=== PATIENT | male | born 1950 | race Caucasian/White ===

== ENCOUNTER → 2019-04-17 07:58 | Outpatient (CLI) | payer MEDICARE, OTHER | END | disposition home or self-care (01) | LOC: D.US 07:58 | PROVIDERS: ATTEND Family Medicine | DX: R42 Dizziness and giddiness (principal) ==

== ENCOUNTER 2019-07-07 05:53 | Day surgery (SDC) | payer MEDICARE, OTHER ==
[~2019-07-07] VITALS: Ht 190.5 cm; Wt 93.0 kg
[~2019-07-07 05:53] MED LIST: FIBERCON625 MG PO; HCTZ PO; LOSARTAN PO
[2019-07-07 06:35] LABS: ANION GAP 10.4 mmol/L (8-16); CARBON DIOXIDE 30.4 mmol/L (21.0-32.0); CREATININE - SERUM 1.3 mg/dL (0.6-1.3); POTASSIUM - SERUM 3.8 mmol/L (3.5-5.1)
[2019-07-07 06:39] LABS: HEMATOCRIT 47.4 % (42.0-54.0); HEMOGLOBIN 16.1 g/dL (13.5-17.5); MCH 28.1 pg (26.0-34.0); MCV 82.7 fL (80.0-100.0); MEAN PLATELET VOLUME 11.4 fL (7.4-10.4); RBC 5.73 10x6/uL (4.20-6.10); RDW 14.1 % (11.5-14.5); WBC 4.5 10x3/uL (4.8-10.8)
[2019-07-07 07:31] VITALS: BP 129/72; Ht 190.5 cm; Wt 93.0 kg
--- NOTE | 2019-07-07 10:58 | OP ---
PATIENT NAME: DORA MILTON MEDICAL RECORD: [id number] :46 LOCATION:[facility] ADMISSION DATE: SURGEON: CLEMENT NEWSOME MD DATE OF OPERATION: 07/07/2019 SURGEON: Clement Newsome MD ANESTHESIA: TIVA by Kimberley Zavala CRNA. DIAGNOSES: Dysuria, possible interstitial cystitis. PROCEDURES: Cystoscopy, hydrodistention of the bladder and intravesical Rimso instillation. FINDINGS: No urethral lesions. Obstructive lateral lobes of the prostate. Single ureteral orifices bilaterally, inflamed bladder dome. No bladder tumors were seen. BLOOD LOSS: None. CLINICAL HISTORY: This is a 69-year-old male, who has persistent urinary tract infection symptoms. He has ongoing dysuria. He has been treated with doxycycline. This started about a month ago when he "saw a tick" on the undersurface of the penis. He went to a walk-in clinic and he was told that the zeyad was not a tick. Even after finishing the doxycycline, his symptoms have not resolved. He comes today to have cystoscopy to check for any lesions in the urethra, prostate, or bladder. HE IS ALLERGIC TO BACTRIM, DURICEF, FLOXIN, GUAIFENESIN, TRICOR, Z-GARETT, PHENYLEPHRINE, AND ASPIRIN. 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 DESCRIPTION OF PROCEDURE: The patient was given IV sedation. He was then placed in the lithotomy position and prepped and draped. A 17-Albanian cystoscope with 30-degree lens was used for visualization. Findings are as outlined above. The bladder was then filled to about 600 mL of capacity and the hydrodistention was maintained for about 2 minutes. The bladder was then emptied fully through the cystoscope sheath and the scope was removed. I then inserted a 16-Albanian red rubber catheter into the bladder and 50 mL of Rimso solution was instilled into the bladder. The catheter was then removed. The patient will hold the Rimso solution in for at least 15 minutes and then void it out. I will see the patient in followup in 2 weeks' time to check on his voiding symptoms. TRANSINT:[id number] Voice Confirmation ID: [id number] DOCUMENT ID: [id number] CLEMENT NEWSOME MD at 1058 CC: [id number] DICTATION DATE: 07/07/19 0934 PONY WORKER: 07/07/19 1053 REG [facility] [address] [place] [address]
--- NOTE | 2019-07-07 13:04 | NUR ---
1050 DRESSED, AWAKE & ALERT. GIVEN DISCHARGE INFORMATION INCLUDING: MED REC, RTC APPT., MC D/C INSTRUCTIONS, & CYSTOSCOPY D/C INSTRUCTIONS. PT & MRS. MILTON VOICED UNDERSTANDING. TO PRIVATE CAR PER WHEELCHAIR BY VOLUNTEER. HOME WITH MRS. MILTON. Cuco MELENDREZ R.N.
== END 2019-07-07 10:50 | disposition home or self-care (01) ==
LOC: D.OPS 05:53 → D.PAN 08:30 → D.OPS 08:30 → D.PAN 10:05 → D.OPS 10:15
PROVIDERS: Anesthesiology; ATTEND Urology
DX: R30.0 Dysuria (principal); N40.1 Benign prostatic hyperplasia with lower urinary tract symptoms; N13.8 Other obstructive and reflux uropathy; Z88.6 Allergy status to analgesic agent; Z88.1 Allergy status to other antibiotic agents; Z88.2 Allergy status to sulfonamides; Z01.812 Encounter for preprocedural laboratory examination

== ENCOUNTER 2019-10-12 12:45 | Emergency (ER) | payer MEDICARE, OTHER ==
[~2019-10-12] VITALS: Ht 190.5 cm; Wt 95.5 kg
[2019-10-12 13:13] VITALS: Ht 190.5 cm; Wt 95.5 kg
[2019-10-12] MEDS ORDERED: COZAAR25 MG PO (13:16)
[2019-10-12] MEDS ORDERED: HYDROCHLOROTH12.5 M1 PO (13:16)
[2019-10-12 14:09] LABS: BASOPHILS 0.2 % (0-2); EOSINOPHILS 0.3 % (0-7); HEMOGLOBIN 15.3 g/dL (13.5-17.5); IMMATURE GRANULOCYTES 0.2 % (0-5); LYMPHOCYTES 15.3 % (15-50); MCH 28.3 pg (26.0-34.0); MCHC 33.3 g/dL (31.0-37.0); MEAN PLATELET VOLUME 9.6 fL (7.4-10.4); MONOCYTES 12.2 % (2-11); NEUTROPHILS 71.8 % (40-80); PLATELET COUNT 193 10x3/uL (130-400); RBC 5.41 10x6/uL (4.20-6.10); RDW 14.1 % (11.5-14.5); WBC 6.5 10x3/uL (4.8-10.8)
[2019-10-12 14:20] LABS: CALC OSMOLALITY 289 mosm/kg (275-300); CALCIUM 8.9 mg/dL (8.5-10.1); CARBON DIOXIDE 30.4 mmol/L (21.0-32.0); CHLORIDE - SERUM 107 mmol/L (98-107); CREATININE - SERUM 1.3 mg/dL (0.6-1.3); GLUCOSE 102 mg/dL (74-106); POTASSIUM - SERUM 3.9 mmol/L (3.5-5.1); SODIUM 144 mmol/L (136-145); UREA NITROGEN 21 mg/dL (7-18); eGFR NON AFRICAN AMERICAN 58 mL/min (90-120)
[2019-10-12 14:29] LABS: ALBUMIN 3.6 g/dL (3.4-5.0); ALKALINE PHOSPHATASE 119 U/L (46-116); ALT (SGPT) 43 U/L (10-68); BILIRUBIN - TOTAL 0.32 mg/dL (0.2-1.3)
[2019-10-12 14:31] LABS: TROPONIN-I < 0.017 ng/mL (0.000-0.060)
[2019-10-12 14:53] VITALS: BP 126/64
== END 2019-10-12 14:55 | disposition home or self-care (01) ==
LOC: D.ER 12:45
PROVIDERS: Family Medicine
DX: R51 Headache (principal); I10 Essential (primary) hypertension

== ENCOUNTER → 2019-10-29 10:28 | Outpatient (CLI) | payer MEDICARE, OTHER ==
[2019-10-12 13:13] VITALS: BMI 26.3
[~2019-10-29 10:28] MED LIST changes: +COZAAR25 MG PO; +HYDROCHLOROTH12.5 M1 PO
== END | disposition home or self-care (01) ==
LOC: D.MRI 10:28
PROVIDERS: ATTEND Family Medicine
DX: M54.2 Cervicalgia (principal)